=== PATIENT | male | born 1945 | race Caucasian/White ===

== ENCOUNTER 2016-07-29 06:58 | Day surgery (SDC) | payer MEDICARE ==
[2016-07-29] VITALS (8 sets, daily range): BP systolic 119–130; BP diastolic 56–88; PULSE 3–88; RESP 14–17; O2SAT 95–98
[~2016-07-29] VITALS: Ht 180.3 cm; Wt 90.3 kg
[~2016-07-29 06:58] MED LIST: ATOR20TA PO; CHOL200025 PO; CYCL10TA9 PO; HYDR-4003 PO; IBUP800T28 PO; KLO5T PO; Lactated Ringer's 1,000 ML IV SCH; Levofloxacin 500 mg/100 mL D5W IV ONE; MAGN400T4 PO; MULT-1073 PO; POTA10TA19 PO; TAMS0.4C98 PO; TEST200V20 IM; TOPI200T7 PO; VERA80TA2 PO; sumatriptan
[2016-07-29] MEDS ORDERED: Propofol 10,000 mCg/mL 20 mL Inj ONE (06:59)
[2016-07-29] MEDS ORDERED: fentaNYL-PF 50 mCg/mL 2 mL Inj ONE (06:59)
[2016-07-29] MEDS ORDERED: Lactated Ringer's 1,000 ML IV ONE (08:00)
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
[2016-07-29] MEDS: Acetaminophen IV 1,000 MG in IV Premix 1 EACH IV ONE ×2 (09:00→09:22)
[2016-07-29] MEDS ORDERED: Lactated Ringer's 1,000 ML IV SCH (09:22)
[2016-07-29] MEDS ORDERED: Lactated Ringer's 500 ML IV PRN (09:22)
[2016-07-29] MEDS ORDERED: Labetalol 5 mg/mL 4 mL Inj IV PRN (09:25)
[2016-07-29] MEDS ORDERED: Dexamethasone 4 mg/mL Inj IVPUSH PRN (09:25)
[2016-07-29] MEDS ORDERED: Atropine 0.4 mg/mL Inj IVPUSH PRN (09:25)
[2016-07-29] MEDS ORDERED: Phenylephrine 10,000 mCg/mL Inj IVPUSH PRN (09:25)
[2016-07-29] MEDS ORDERED: HYDROmorphone 1 mg/mL Inj IVPUSH PRN (09:25)
[2016-07-29] MEDS ORDERED: EPHEDrine Sulfate 50 mg/mL Inj IVPUSH PRN (09:25)
[2016-07-29] MEDS ORDERED: Ondansetron 2 mg/mL 2 mL Inj IVPUSH PRN (09:25)
[2016-07-29] MEDS ORDERED: hydrALAZINE 20 mg/mL Inj IVPUSH PRN (09:25)
[2016-07-29] MEDS ORDERED: fentaNYL-PF 50 mCg/mL 2 mL Inj IVPUSH PRN (09:25)
[2016-07-29] MEDS ORDERED: HYDROcodone-APAP 5-325 mg Tablet PO PRN (09:55)
--- NOTE | 2016-07-29 10:28 | PCM.ANEP1 ---
Post Anesthesia Phase 1 PACU Phase 1 Assessment Vital Signs Vital Signs Date Time Temp Pulse Resp B/P Pulse Ox O2 Delivery O2 Flow Rate FiO2 07/29/16 10:05 3 14 121/63 96 Nasal Cannula 2 07/29/16 10:00 75 15 125/65 95 Nasal Cannula 2 07/29/16 09:55 36.2 76 17 121/56 95 Nasal Cannula 2 07/29/16 08:16 35.7 88 16 130/65 97 Room Air Anesthetic Administered: GA Level of Alertness: Awake, talking HAIRSTON's with Equal Strength: Yes Pain: No Nausea or Vomiting: No Oxygen Delivery: Room Air Lungs: Normal Air Movement Kush Russo MD Jul 29, 2016 10:28
--- NOTE | 2016-07-29 10:48 | DRSVH ---
PROCEDURE: X-RAY KUB ([id number]) INDICATIONS: RIGHT KIDNEY STONE TECHNIQUE: One view of the abdomen acquired. COMPARISON: [facility], CR, XR RETROGRADE UROGRAPHY, 01/19/2016, 12:07. FINDINGS: Surgical changes and devices: 2 calcifications projected over the right kidney largest measuring 7 mm and 2 calcifications projected over left kidney largest measuring 1.5 cm. Multiple pelvic calcifica tions are present. Bowel: Bowel gas pattern is normal. Soft tissues: No suspicious abdominal calcifications. Visualized solid organ contours appear normal in size. Bones: No suspicious bony lesions. IMPRESSION: 1. Calcifications projecting over the kidneys as above. 2. Several pelvic calcifications present likely related to phleboliths but distal ureteral stones can not entirely be excluded. Recommend clinical correlation and if indicated CT KUB could be performed. Dictated by: Gregory Dawn [facility] Interpreted: Margaret East MD on 07/29/2016 at 10:46 Transcribed by: DAVIE on 07/29/2016 at 10:47 Approved by: Margaret East MD, PhD on 07/29/2016 at 16:52
--- NOTE | 2016-07-29 14:54 | PCM.ANEP2 ---
Post Anesthesia Evaluation ASA/CMS Post Anesthesia VS in Patient's Normal Range?: Yes Resp Stable; Airway Patent?: Yes CV Function & Hydration Stable: Yes Mental Status Recovered?: Yes Pain control Satisfactory?: Yes N/V Control Satisfactory?: Yes Kush Russo MD Jul 29, 2016 14:54
--- NOTE | 2016-07-30 14:48 | OP ---
[address] [address] OPERATIVE REPORT PATIENT: JAGDISH TREJO : 1945 MR#: [id number] ADMIT: 07/29/2016 JOB ID: [id number] DATE OF SURGERY: 07/29/2016 PROCEDURE NAME: Right-sided extracorporeal shock wave lithotripsy. SURGEON: Tonya Jarrett MD. ANESTHESIA: General. PREOPERATIVE DIAGNOSIS(ES): Right-sided nephrolithiasis. POSTOPERATIVE DIAGNOSIS(ES): Right-sided nephrolithiasis. INDICATIONS: Patient is a 70-year-old gentleman with a longstanding history of nephrolithiasis, status post multiple prior treatments, electing treatment of two right-sided, nonobstructing renal calculi. Risks, benefits were discussed and he wished to proceed again with shock wave lithotripsy. PROCEDURE IN DETAIL: After appropriate informed consent was obtained, patient brought to the operating room and SCDs were placed. Adequate general anesthesia was induced. He was carefully placed in the supine position on the fluoro table. Lithotripter head was brought in. Stones were easily visualized. Power was applied with escalation with a 2-minute pause after 200 shocks and a power level of 5000 shocks were applied to the cephalad stone and then 1000 to the inferior stone. There appeared to be very good breakup of the stones, becoming much more hazy in appearance. Patient tolerated procedure very well. The skin condition was good at the termination of the case. Patient was awakened, taken in stable condition to the postanesthesia care unit.
[2016-09-07] MEDS ORDERED: OXYB5TAB PO (13:04)
== END 2016-07-29 23:59 | disposition home or self-care (01) ==
LOC: SAS 06:58
PROVIDERS: ATTEND Urology
DX: N20.0 Calculus of kidney (principal); R01.1 Cardiac murmur, unspecified
CPT/HCPCS: 50590; 74000; J0131; J3010; J7120

== ENCOUNTER 2016-09-09 06:35 | Day surgery (SDC) | payer MEDICARE ==
[~2016-09-09] VITALS: Ht 180.3 cm; Wt 89.2 kg
[2016-09-09] VITALS (7 sets, daily range): BP systolic 112–124; BP diastolic 48–66; PULSE 83–89; RESP 14–16; O2SAT 95–98
[~2016-09-09 06:35] MED LIST changes: -Lactated Ringer's 1,000 ML IV SCH; -Levofloxacin 500 mg/100 mL D5W IV ONE; +Levofloxacin 500 mg/100 mL D5W IV SCH; +OXYB5TAB PO
[2016-09-09] MEDS ORDERED: Dexamethasone 4 mg/mL Inj ONE (06:36)
[2016-09-09] MEDS ORDERED: Ondansetron 2 mg/mL 2 mL Inj ONE (06:36)
[2016-09-09] MEDS ORDERED: fentaNYL-PF 50 mCg/mL 2 mL Inj ONE (06:36)
[2016-09-09] MEDS ORDERED: Propofol 10,000 mCg/mL 20 mL Inj ONE (06:36)
[2016-09-09] MEDS ORDERED: EPHEDrine/NS 5 mg/mL 5 mL Syringe ONE (06:36)
[2016-09-09] MEDS ORDERED: Phenylephrine 10,000 mCg/mL Inj ONE (06:36)
[2016-09-09] MEDS: Lactated Ringer's 1,000 ML IV SCH ×2 (07:10→08:50)
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
--- NOTE | 2016-09-09 08:30 | DRSVH ---
PROCEDURE: X-RAY KUB ([id number]) INDICATIONS: LEFT KIDNEY STONE TECHNIQUE: One view of the abdomen acquired. COMPARISON: [facility], , XR KUB, 08/16/2016, 9:13. FINDINGS: Surgical changes and devices: Lumbar spine fixation hardware redemonstrated. Bowel: Bowel gas pattern is normal. Soft tissues: 2 calcifications projected over the left kidney largest measuring 1.3 cm and smaller 4 mm. 2 small calcifications projected over the right kidney largest measuring 3 mm.. Multiple pelvic calcifications likely phleboliths redemonstrated. Bones: No suspicious bony lesions. IMPRESSION: 1. 2 calcifications again seen projected over the left kidney with no significant change. 2. 2 small calcifications projected over the upper pole of the right kidney largest measuring 3 mm. 3. Several pelvic calcifications present likely related to phleboliths but distal ureteral stones can not entirely be excluded. Recommend clinical correlation and if indicated CT KUB could be performed. Dictated by: Gregory MCGOWAN Interpreted: Thierry Gonzalez MD on 09/09/2016 at 8:28 Transcribed by: KENYATTA on 09/09/2016 at 8:30 Approved by: Thierry Gonzalez M.D. on 09/09/2016 at 9:57
[2016-09-09] MEDS ORDERED: Lactated Ringer's 1,000 ML IV SCH (09:19)
[2016-09-09] MEDS ORDERED: Lactated Ringer's 500 ML IV PRN (09:19)
[2016-09-09] MEDS ORDERED: hydrALAZINE 20 mg/mL Inj IVPUSH PRN (09:20)
[2016-09-09] MEDS ORDERED: Phenylephrine 10,000 mCg/mL Inj IVPUSH PRN (09:20)
[2016-09-09] MEDS ORDERED: EPHEDrine Sulfate 50 mg/mL Inj IM PRN (09:20)
[2016-09-09] MEDS ORDERED: Atropine 0.4 mg/mL Inj IVPUSH PRN (09:20)
[2016-09-09] MEDS ORDERED: Ondansetron 2 mg/mL 2 mL Inj IVPUSH PRN (09:20)
[2016-09-09] MEDS ORDERED: Labetalol 5 mg/mL 4 mL Inj IV PRN (09:20)
[2016-09-09] MEDS ORDERED: EPHEDrine Sulfate 50 mg/mL Inj IVPUSH PRN (09:20)
[2016-09-09] MEDS ORDERED: HYDROmorphone 1 mg/mL Inj IVPUSH PRN (09:20)
[2016-09-09] MEDS ORDERED: fentaNYL-PF 50 mCg/mL 2 mL Inj IVPUSH PRN (09:20)
--- NOTE | 2016-09-09 10:13 | PCM.SURGPO ---
Immediate Operative Note Date of Surgery: September 09, 2016 Pre Operative Diagnosis L renal calculi Post Operative Diagnosis L renal calculi Procedure Extracorporeal shock wave lithotripsy of L renal calculi Surgeon and Board Liner Operator Surgeon: Pino Green MD Assistants: None Findings Pre-op KUB showed L upper pole renal calculi x 2 (13 x 8mm, 4 x 3mm). ESWL of L renal calculi was performed at a rate of 60, up to a maximum energy level of 5 , with a total of 2000 shocks administered. Of note, a 2 minute pause was performed after the initial 200 shocks to aid in calculi fragmentation. Post- ESWL fluoroscopy showed evidence for excellent fragmentation of calculi. Complications There were no periprocedural complications identified. Surgical Specimen Removed: No Specimen sent to Pathology: No Anesthetic Administered: GA Grafts, Implants: None Output, Estimated Blood Loss: 0 Blood Admin during surgery: No Additional information Patient to be discharged home when stable, to return to see Dr. Burgess in 2- 3 weeks for post-op visit, with a KUB prior to appt. Pino Green MD September 09, 2016 10:13
--- NOTE | 2016-09-09 10:34 | PCM.DISURG ---
Surgical Discharge Instruction Date of Service September 09, 2016 Dates of Hospitalization Date of Hospital Admission September 09, 2016 Providers Admitting Physician: Pino Green MD Primary Care Physician: Hetal Duque DO Attending Physician: Pino Green MD Discharge Diagnosis Discharge Diagnosis L renal calculi Post Operative diagnosis L renal calculi Diet Discharge Diet: No restrictions, Other (Drink at least 10-12 8oz. glasses (3 liters) of fluids per day) Activity Discharge Activity-General: Try not to overdue, Activity as pain allows, No driving while taking narcotic Dressing and Incisional Care Hygiene: May shower Additional Instructions Discharge Instructions Strain all urine Follow Up Plan Follow-up Provider (F9): Anamaria Burgess MD Follow-up appointment: Weeks (2-3 weeks for post-op visit, with a KUB prior to appt.) Call your provider for: Fever, Chills, Vomiting, Other (Pain uncontrolled by pain medications) Pino Green MD September 09, 2016 10:34
[2016-09-09] MEDS ORDERED: HYDROcodone-APAP 5-325 mg Tablet PO PRN (10:40)
--- NOTE | 2016-09-09 11:39 | PCM.ANEP1 ---
Post Anesthesia Phase 1 PACU Phase 1 Assessment Date of Service: September 09, 2016 Vital Signs Vital Signs Date Time Temp Pulse Resp B/P Pulse Ox O2 Delivery O2 Flow Rate FiO2 09/09/16 10:56 83 16 123/66 96 Room Air 09/09/16 10:25 88 16 112/63 95 Room Air 09/09/16 10:20 88 14 121/59 96 Room Air 09/09/16 10:05 86 14 122/48 96 Room Air 09/09/16 10:00 88 15 114/66 98 Simple Mask 7 09/09/16 09:55 36.9 89 15 116/58 98 Simple Mask 7 09/09/16 07:25 36.5 84 124/48 95 Room Air Anesthetic Administered: GA Level of Alertness: Awake, talking HAIRSTON's with Equal Strength: Yes Pain: No Nausea or Vomiting: No Cardiovascular Function and Hy: Yes Oxygen Delivery: Room Air Lungs: Clear to Auscultation, Normal Air Movement Dermatome Level: Full Sensation Complications: No Follow up Care: No Comments Pt awake in PACU with no complaints. Satisfied with anesthetic care. Sky Welch MD September 09, 2016 11:39
--- NOTE | 2016-09-09 20:43 | OP ---
[address] [address] OPERATIVE REPORT PATIENT: JAGDISH TREJO : 1945 MR#: [id number] ADMIT: 09/09/2016 JOB ID: [id number] DATE OF SURGERY: 09/09/2016 PREOPERATIVE DIAGNOSIS(ES): Left renal calculi. POSTOPERATIVE DIAGNOSIS(ES): Left renal calculi. PROCEDURE: Extracorporeal shockwave lithotripsy of left renal calculi. SURGEON: Pino Green MD. SINGLE SPINDLE SCREW MACHINE OPERATOR: None. ANESTHESIA: General. EBL: 0 mL. SPECIMENS: None. DRAINS: None. COMPLICATIONS: None. CONDITION: Stable. FINDINGS: Preoperative KUB showed left upper pole renal calculi x 2 (13 x 8 mm, 4 x 3 mm). ESWL of left renal calculi was performed at a rate of 60, up to a maximum energy level of 5, with a total of 2000 shocks administered. Of note, a 2 minute pause was performed after the initial 200 shocks to aid in calculi fragmentation. Post ESWL fluoroscopy showed evidence for excellent fragmentation of calculi. INDICATIONS: The patient is a 70-year-old male with a left renal calculus followed by Dr. Burgess. The patient now presents for extracorporeal shockwave lithotripsy of left renal calculus. DESCRIPTION OF PROCEDURE: The patient was brought to the operating room and placed supine on the operating room table. Preoperative KUB showed left upper pole renal calculi x 2 (13 x 8 mm, 4 x 3 mm). The patient was given Levaquin IV antibiotics. Sequential compression device boots were placed. General anesthesia was administered. The patient was left in supine position. Extracorporeal shockwave lithotripsy of left renal calculi was performed at a rate of 60, up to a maximum energy level of 5, with a total of 2000 shocks administered. Of note, a 2 minute pause was performed after the initial 200 shocks to aid in calculi fragmentation. Post ESWL fluoroscopy showed evidence for excellent fragmentation of calculi. The patient was awakened from general anesthesia and transferred to the recovery room in stable condition. The patient tolerated the procedure well. PLAN: Plan is for the patient to return to see Dr. Burgess in 2-3 weeks for a postoperative visit with a KUB prior to the appointment. BRAULIO
== END 2016-09-09 23:59 | disposition home or self-care (01) ==
LOC: SAS 06:35
PROVIDERS: ATTEND Urology
DX: N20.0 Calculus of kidney (principal); R35.0 Frequency of micturition; R39.15 Urgency of urination; F32.9 Major depressive disorder, single episode, unspecified; R00.8 Other abnormalities of heart beat; Z96.652 Presence of left artificial knee joint
CPT/HCPCS: 50590; 74000; J1100; J2370; J2405; J3010; J7120